=== PATIENT | male | born 1995 | race African-American/Black ===

== ENCOUNTER 2017-12-25 23:22 | Emergency (ER) | payer OTHER ==
[2017-12-25] MEDS ORDERED: LIDOCAINE 1% MPF 5 ML VIAL ONE (23:47)
--- NOTE | 2017-12-26 00:06 | ER ---
Nurse's Notes [facility] Name: Rolan Sinha Age: 22 yrs Sex: Male : 1995 Arrival Date: 12/25/2017 Time: 23:25 Bed 26 Private MD: Diagnosis: Laceration without foreign body of other part of head-left eyebrow Presentation: 12/25 23:32 Presenting complaint: Patient states: he was playing basketball approx 4 hours ago and bb received laceration to left brow pt denies LOC. Transition of care: patient was not received from another setting of care. Onset of symptoms was December 25, 2017. Risk Assessment: Do you want to hurt yourself or someone else? Patient reports no desire to harm self or others. Initial Sepsis Screen: Does the patient meet any 2 criteria? No. Patient's initial sepsis screen is negative. Does the patient have a suspected source of infection? No. Patient's initial sepsis screen is negative. Care prior to arrival: None. 23:32 Method Of Arrival: Law Enforcement: [place] [employer] bb 23:32 Acuity: LUCAS 4 bb Historical: - Allergies: 23:33 No Known Allergies; bb - Home Meds: 23:33 None [Active]; bb - PMHx: 23:33 None; bb - PSHx: 23:33 skin graft to abdomen; bb - Immunization history:: Adult Immunizations up to date, Last tetanus immunization: up to date. - Social history:: Smoking status: Patient/guardian denies using tobacco, Patient/guardian denies using alcohol, street drugs. - Ebola Screening: : No symptoms or risks identified at this time. Screenin:57 Abuse screen: Denies threats or abuse. Nutritional screening: No deficits noted. tl3 Tuberculosis screening: No symptoms or risk factors identified. Fall Risk None identified. 23:57 Tuberculosis screening: No symptoms or risk factors identified. Risk factors: inmate. tl3 Assessment: 23:55 General: Appears in no apparent distress. comfortable, slender, well groomed, well tl3 developed, well nourished, Behavior is calm, cooperative, appropriate for age. Pain: Denies pain. Neuro: Level of Consciousness is awake, alert, obeys commands, Oriented to person, place, time, situation, Appropriate for age. Cardiovascular: Patient's skin is warm and dry. Respiratory: Airway is patent Respiratory effort is even, unlabored, Respiratory pattern is regular, symmetrical. GI: No signs and/or symptoms were reported involving the gastrointestinal system. : No signs and/or symptoms were reported regarding the genitourinary system. EENT: No signs and/or symptoms were reported regarding the EENT system. Derm: Wound noted left side of forehead laceration, hit with elbow while playing basketball. Musculoskeletal: No signs and/or symptoms reported regarding the musculoskeletal system. 12/26 00:10 Reassessment: Patient appears in no apparent distress at this time. No changes from tl3 previously documented assessment. Patient and/or family updated on plan of care and expected duration. Pain level reassessed. Patient is alert, oriented x 3, equal unlabored respirations, skin warm/dry/pink. 00:10 Reassessment: suturing complete, [address] above left eyebrow. tl3 Vital Signs: 12/25 23:33 BP 130 / 72; Pulse 83; Resp 16 S; Temp 98.5(O); Pulse Ox 95% on R/A; Weight 99.79 kg bb (R); Height 5 ft. 11 in. (180.34 cm) (R); Pain 6/10; 12/26 00:10 BP 132 / 83; Pulse 93; Resp 18; Pulse Ox 97% ; tl3 12/25 23:33 Body Mass Index 30.68 (99.79 kg, 180.34 cm) bb [place] Coma Score: 00:06 Eye Response: spontaneous(4). Verbal Response: oriented(5). Motor Response: obeys pm1 commands(6). Total: 15. ED Course: 12/25 23:25 Patient arrived in ED. ms 23:33 Triage completed. bb 23:33 Arm band placed on Patient placed in an exam room, on a stretcher, on pulse oximetry. bb 23:37 Alex Gutierrez NP is PHCP. pm1 23:37 Romel Stone MD is Attending Physician. pm1 23:38 Tata Massey RN is Primary Nurse. tl3 23:57 Patient has correct armband on for positive identification. Bed in low position. Call tl3 light in reach. Side rails up X 1. Adult w/ patient. 23:57 No provider procedures requiring assistance completed. Patient did not have IV access tl3 during this emergency room visit. 23:58 Nurse Practitioner and/or Physician Reel Slitter to see patient. tl3 23:58 Irrigation of laceration. tl3 Administered Medications: 12/26 00:05 Drug: Lidocaine (1 %) 5 ml {Note: per Alex.} Volume: 5 ml; Route: Infiltration; tl3 00:06 Follow up: Response: No adverse reaction; Marked relief of symptoms tl3 Outcome: 00:05 Discharge ordered by . pm1 00:10 Discharged to Law Enforcement tl3 00:10 Condition: good 00:10 Discharge instructions given to patient, police, Instructed on discharge instructions, follow up and referral plans. Demonstrated understanding of instructions, follow-up care, wound care. 00:14 Patient left the ED. tl3 Signatures: Gloria Whyte, Opal Bales RN, ms, Patrick, EFRA[employer] LOCATION AND MEASUREMENT TECHNICIAN pm1 Tata Massey RN RN tl3
--- NOTE | 2017-12-26 00:06 | EDPHYS ---
Physician Documentation [facility] Name: Rolan Sinha Age: 22 yrs Sex: Male : 1995 Arrival Date: 12/25/2017 Time: 23:25 Bed 26 Private MD: ED Physician Romel Stone HPI: 12/26 00:06 This 22 yrs old Black Male presents to ER via Law Enforcement with complaints of pm1 laceration. 00:06 The patient or guardian reports a laceration, 2 cm(s), clean. The complaints affect the pm1 outer aspect of left eyebrow. Context of injury: The problem was sustained outdoors, resulted from elbow while playing basketball. Onset: The symptoms/episode began/occurred just prior to arrival. Associated signs and symptoms: Loss of consciousness: This patient did not experience any loss of consciousness. Pertinent negatives: headache, neck pain. Severity of symptoms: in the emergency department the symptoms are unchanged, a " 0" out of "10". The patient has not experienced similar symptoms in the past. Historical: - Allergies: 12/25 23:33 No Known Allergies; bb - Home Meds: 23:33 None [Active]; bb - PMHx: 23:33 None; bb - PSHx: 23:33 skin graft to abdomen; bb - Immunization history:: Adult Immunizations up to date, Last tetanus immunization: up to date. - Social history:: Smoking status: Patient/guardian denies using tobacco, Patient/guardian denies using alcohol, street drugs. - Ebola Screening: : No symptoms or risks identified at this time. ROS: 12/26 00:06 Constitutional: Negative for fever, chills, and weight loss, Eyes: Negative for injury, pm1 pain, redness, and discharge, ENT: Negative for injury, pain, and discharge, Neck: Negative for injury, pain, and swelling, Cardiovascular: Negative for chest pain, palpitations, and edema, Respiratory: Negative for shortness of breath, cough, wheezing, and pleuritic chest pain, Abdomen/GI: Negative for abdominal pain, nausea, vomiting, diarrhea, and constipation, Back: Negative for injury and pain, MS/Extremity: Negative for injury and deformity. Skin: Positive for laceration(s), of the outer aspect of left eyebrow. Neuro: Negative for headache, loss of consciousness, numbness, tingling. Exam: 00:06 Constitutional: This is a well developed, well nourished patient who is awake, alert, pm1 and in no acute distress. 00:06 Eyes: Pupils equal round and reactive to light, extra-ocular motions intact. Lids and lashes normal. Conjunctiva and sclera are non-icteric and not injected. Cornea within normal limits. Periorbital areas with no swelling, redness, or edema. ENT: Nares patent. No nasal discharge, no septal abnormalities noted. Tympanic membranes are normal and external auditory canals are clear. Oropharynx with no redness, swelling, or masses, exudates, or evidence of obstruction, uvula midline. Mucous membranes moist. Neck: Trachea midline, no thyromegaly or masses palpated, and no cervical lymphadenopathy. Supple, full range of motion without nuchal rigidity, or vertebral point tenderness. No Meningismus. Chest/axilla: Normal chest wall appearance and motion. Nontender with no deformity. No lesions are appreciated. Cardiovascular: Regular rate and rhythm with a normal S1 and S2. No gallops, murmurs, or rubs. Normal PMI, no JVD. No pulse deficits. Respiratory: Lungs have equal breath sounds bilaterally, clear to auscultation and percussion. No rales, rhonchi or wheezes noted. No increased work of breathing, no retractions or nasal flaring. Back: No spinal tenderness. No costovertebral tenderness. Full range of motion. Skin: Warm, dry with normal turgor. Normal color with no rashes, no lesions, and no evidence of cellulitis. MS/ Extremity: Pulses equal, no cyanosis. Neurovascular intact. Full, normal range of motion. 00:06 Head/face: Noted is no obvious of injury or deformity except a laceration(s), that is linear, 2 cm(s), of the outer aspect of left eyebrow. 00:06 Neuro: Orientation: is normal, Cranial nerves: CN II- XII are normal as tested, Motor: is normal, moves all fours, Sensation: is normal, no obvious gross deficits, Gait: is steady, at a normal pace, without difficulty. Vital Signs: 12/25 23:33 BP 130 / 72; Pulse 83; Resp 16 S; Temp 98.5(O); Pulse Ox 95% on R/A; Weight 99.79 kg bb (R); Height 5 ft. 11 in. (180.34 cm) (R); Pain 6/10; 12/26 00:10 BP 132 / 83; Pulse 93; Resp 18; Pulse Ox 97% ; tl3 12/25 23:33 Body Mass Index 30.68 (99.79 kg, 180.34 cm) bb Chloe Coma Score: 00:06 Eye Response: spontaneous(4). Verbal Response: oriented(5). Motor Response: obeys pm1 commands(6). Total: 15. Laceration: 00:03 Wound Repair of 2cm ( 0.8in ) subcutaneous laceration to outer aspect of left eyebrow. pm1 Linear shaped.. Distal neuro/vascular/tendon intact. Anesthesia: Local anesthetic administered with 2 mls of 1% lidocaine. Wound prep: Extensive cleansing with hibiclenz by nurse, Wound irrigation with saline by nurse, Wound explored extensively, Copious irrigation. Skin closed with 5 5-0 Prolene using simple sutures and sterile technique. Dressed with Neosporin. Patient tolerated well. MDM: 12/25 23:38 Patient medically screened. pm1 12/26 00:04 Data reviewed: vital signs. Data interpreted: Pulse oximetry: on room air is 95 %. pm1 Interpretation: normal. Counseling: I had a detailed discussion with the patient and/or guardian regarding: the historical points, exam findings, and any diagnostic results supporting the discharge/admit diagnosis, the need for outpatient follow up, to return to the emergency department if symptoms worsen or persist or if there are any questions or concerns that arise at home. 12/25 23:42 Order name: Prolene, Sutures; Complete Time: 00:05 pm1 12/25 23:42 Order name: Dressing - Wound; Complete Time: 00:05 pm1 12/25 23:42 Order name: Gloves, Sterile; Complete Time: 00:06 pm1 12/25 23:42 Order name: Setup Suture Tray; Complete Time: 00:06 pm1 Administered Medications: 00:05 Drug: Lidocaine (1 %) 5 ml {Note: per Alex.} Volume: 5 ml; Route: Infiltration; tl3 00:06 Follow up: Response: No adverse reaction; Marked relief of symptoms tl3 Disposition: 04:20 Co-signature as Attending Physician, Romel Stone MD. rn Disposition: 12/26/17 00:05 Discharged to Home. Impression: Laceration without foreign body of other part of head - left eyebrow. - Condition is Stable. - Discharge Instructions: Facial Laceration. - Medication Reconciliation Form, Thank You Letter, Antibiotic Education form. - Follow up: Emergency Department; When: As needed; Reason: Worsening of condition. Follow up: Private Physician; When: 4-5 days; Reason: Recheck today's complaints, Continuance of care, Staple/Suture removal, Re-evaluation by your physician. - Problem is new. - Symptoms have improved. Signatures: Gloria Whyte RN RN bb Romel Stone MD MD rn Marinas, Patrick, [employer]IN SALT LIFTER pm1 Tata Massey, JOYCE RN tl3 Corrections: (The following items were deleted from the chart) 00:14 00:05 12/26/2017 00:05 Discharged to Home. Impression: Laceration without foreign body tl3 of other part of head - left eyebrow. Condition is Stable. Forms are Medication Reconciliation Form, Thank You Letter, Antibiotic Education, Prescription Opioid Use. Follow up: Emergency Department; When: As needed; Reason: Worsening of condition. Follow up: Private Physician; When: 4-5 days; Reason: Recheck today's complaints, Continuance of care, Staple/Suture removal, Re-evaluation by your physician. Problem is new. Symptoms have improved. pm1
== END 2017-12-26 00:14 | disposition home or self-care (01) ==
LOC: ER 23:22
PROC: 0JQ10ZZ Repair Face Subcutaneous Tissue and Fascia, Open Approach (ICD-10-PCS; principal; 2017-12-26)
DX: S01.112A Laceration without foreign body of left eyelid and periocular area, initial encounter (principal); W50.0XXA Accidental hit or strike by another person, initial encounter; Y93.67 Activity, basketball; Y92.147 Courtyard of prison as the place of occurrence of the external cause
CPT/HCPCS: 99283